=== PATIENT | female | born 1950 | race Caucasian/White ===

== ENCOUNTER 2024-10-18 16:18 | Inpatient (IN) | payer MEDICARE, OTHER ==
[~2024-10-18] VITALS: Ht 162.6 cm; Wt 56.7 kg
[2024-10-18 20:13] LABS: BASOPHILS # (AUTO) 0.1 K/UL (0.0-0.2); BASOPHILS % (AUTO) 0.8 % (0.0-2.0); EOSINOPHILS # (AUTO) 0.2 K/uL (0.0-0.7); HEMATOCRIT 37.3 % (31.2-41.9); HEMOGLOBIN 12.9 g/dL (10.9-14.3); LYMPHOCYTES # (AUTO) 1.5 K/uL (0.8-4.8); LYMPHOCYTES % (AUTO) 18.8 % (20.5-51.5); MEAN CORPUSCULAR HEMOGLOBIN 32.2 uug (24.7-32.8); MEAN CORPUSCULAR HGB CONC 35 g/dL (32.3-35.6); MEAN CORPUSCULAR VOLUME 92.8 fL (75.5-95.3); MONOCYTES # (AUTO) 0.8 K/uL (0.1-1.30); MONOCYTES % (AUTO) 10.5 % (0.0-11.0); NEUTROPHILS # (AUTO) 5.3 K/uL (1.8-8.9); NEUTROPHILS % (AUTO) 67.9 % (38.5-71.5); PLATELET COUNT (AUTO) 268 K/uL (179-408); RED BLOOD CELL COUNT(AUTO) 4.01 MIL/uL (3.63-4.92); RED CELL DISTRIBUTION WIDTH 12.2 % (12.3-17.7); WHITE BLOOD COUNT (AUTO) 7.9 K/uL (3.8-11.8)
[2024-10-18 20:25] LABS: DIFFERENTIAL COMMENT 1
[2024-10-18 20:30] LABS: AMMONIA 18 umol/L (11-32)
[2024-10-18 20:35] LABS: ETHANOL < 3 MG/DL (0-10)
[2024-10-18 20:42] LABS: ALANINE AMINOTRANSFERASE 22 U/L (14-59); ALBUMIN 3.5 g/dL (3.4-5.0); ALKALINE PHOSPHATASE 65 U/L (50-136); ASPARTATE AMINOTRANSFERASE 28 U/L (15-37); BILIRUBIN,DIRECT 0.1 mg/dL (0.0-0.2); BILIRUBIN,TOTAL 0.5 mg/dL (0.2-1.0); CALCIUM 9.5 mg/dL (8.5-10.1); CARBON DIOXIDE 28 mmol/L (21-32); CHLORIDE 102 mmol/L (98-107); CREATININE 0.9 mg/dL (0.6-1.3); GLUCOSE 131 mg/dL (74-106); POTASSIUM 4.2 mmol/L (3.5-5.1); SODIUM SERUM 140 mmol/L (136-145); TOTAL PROTEIN, SERUM 7.7 g/dL (6.4-8.2); UREA NITROGEN, BLOOD 15 mg/dL (7-18)
[2024-10-18 20:47] LABS: ACETAMINOPHEN < 2.0 ug/mL (10-30)
[2024-10-18] MEDS ORDERED: hydrALAZINE HCL 20 MG/1 ML VIAL IV PRN (21:45)
[2024-10-18] MEDS ORDERED: MORPHINE SULFATE 2 MG/1 ML DISP.SYRIN IVP PRN (21:45)
[2024-10-18] MEDS ORDERED: ONDANSETRON 4 MG/2 ML VIAL IV PRN (21:45)
[2024-10-18] MEDS ORDERED: ACETAMINOPHEN 325 MG TABLET PO PRN (21:45)
[2024-10-18] MEDS ORDERED: LORAZEPAM 2 MG/1 ML VIAL ONE (23:11)
[2024-10-18] MEDS: LORAZEPAM 2 MG/1 ML VIAL IV ONE (23:12)
[2024-10-19 03:40] VITALS: BP 139/78; TEMP 99.3; O2SAT 100
[2024-10-19 06:00] VITALS: BP 123/44; TEMP 99.4; O2SAT 95
[2024-10-19] MEDS: HEPARIN SODIUM,PORCINE 5,000 UNITS/ML VIAL SQ SCH (08:19)
[2024-10-19 08:23] LABS: BASOPHILS % (AUTO) 0.7 % (0.0-2.0); EOSINOPHILS # (AUTO) 0.2 K/uL (0.0-0.7); EOSINOPHILS % (AUTO) 3.1 % (0.0-7.0); HEMATOCRIT 32.4 % (31.2-41.9); HEMOGLOBIN 11.6 g/dL (10.9-14.3); LYMPHOCYTES # (AUTO) 1.3 K/uL (0.8-4.8); LYMPHOCYTES % (AUTO) 25.3 % (20.5-51.5); MEAN CORPUSCULAR HEMOGLOBIN 33.1 uug (24.7-32.8); MEAN CORPUSCULAR HGB CONC 36 g/dL (32.3-35.6); MEAN CORPUSCULAR VOLUME 92.8 fL (75.5-95.3); MONOCYTES # (AUTO) 0.6 K/uL (0.1-1.30); MONOCYTES % (AUTO) 11.6 % (0.0-11.0); NEUTROPHILS % (AUTO) 59.3 % (38.5-71.5); PLATELET COUNT (AUTO) 240 K/uL (179-408); RED BLOOD CELL COUNT(AUTO) 3.49 MIL/uL (3.63-4.92)
[2024-10-19 08:33] LABS: ALANINE AMINOTRANSFERASE 16 U/L (14-59); ALBUMIN 2.8 g/dL (3.4-5.0); ALKALINE PHOSPHATASE 56 U/L (50-136); ASPARTATE AMINOTRANSFERASE 26 U/L (15-37); BILIRUBIN,TOTAL 0.5 mg/dL (0.2-1.0); CARBON DIOXIDE 28 mmol/L (21-32); CHLORIDE 107 mmol/L (98-107); CREATININE 0.7 mg/dL (0.6-1.3); GLUCOSE 127 mg/dL (74-106); PHOSPHOROUS 2.6 mg/dL (2.5-4.9); POTASSIUM 3.5 mmol/L (3.5-5.1); SODIUM SERUM 142 mmol/L (136-145); TOTAL PROTEIN, SERUM 6.5 g/dL (6.4-8.2); UREA NITROGEN, BLOOD 10 mg/dL (7-18)
[2024-10-19] MEDS ORDERED: HALOPERIDOL LACTATE 5 MG/1 ML VIAL IM PRN (08:45)
[2024-10-19] MEDS: risperiDONE 0.25 MG TABLET PO SCH (09:00)
[2024-10-19 12:10] VITALS: BP 146/69; TEMP 98.6; O2SAT 97
[2024-10-19 15:27] VITALS: BP 135/69; TEMP 98.6; O2SAT 97
[2024-10-19 17:19] VITALS: BP 111/65; O2SAT 97
[2024-10-19] MEDS: LORAZEPAM 1 MG TABLET PO PRN (17:49)
[2024-10-19 19:00] VITALS: BP 150/71; TEMP 98.6; O2SAT 95
[2024-10-20] VITALS: BP 108/46; TEMP 98.5; O2SAT 95
[2024-10-20] MEDS: hydrOXYzine HCL 25 MG TABLET PO PRN (00:38)
[2024-10-20 07:42] VITALS: BP 114/58; TEMP 98; O2SAT 95
[2024-10-20 11:51] VITALS: BP 116/57; TEMP 97.9; O2SAT 95
[2024-10-20] MEDS: METHIMAZOLE 5 MG TABLET PO SCH (12:12)
[2024-10-20 15:43] VITALS: BP 133/74; TEMP 97.7; O2SAT 95
[2024-10-20 19:25] VITALS: BP 159/92; TEMP 98.6; O2SAT 96
[2024-10-21 05:52] VITALS: BP 128/65; TEMP 98.9; O2SAT 96
[2024-10-21] MEDS ORDERED: METH5TAB34 PO (11:15)
[2024-10-21] MEDS ORDERED: RISP0.2515 PO (11:16)
[2024-10-21 11:32] VITALS: BP 123/73; TEMP 98.5; O2SAT 94
[2024-10-21 14:35] LABS: THYROID STIMULATING HORMONE 0.033 mIU/mL (0.358-3.740)
[2024-10-31] MEDS ORDERED: METOPROLOL TARTRATE 25 MG TABLET PO SCH (21:00)
== END 2024-10-21 14:30 | DRG 281 ==
LOC: ER 16:27 → MEDSURG3 10-19 03:21 → TELE3 10-19 17:43 → MEDSURG3 10-20 18:34
PROVIDERS: ADMIT Internal Medicine; ATTEND Internal Medicine
DX: I21.A1 Myocardial infarction type 2 (principal); G93.40 Encephalopathy, unspecified; E05.90 Thyrotoxicosis, unspecified without thyrotoxic crisis or storm; F29 Unspecified psychosis not due to a substance or known physiological condition; R41.9 Unspecified symptoms and signs involving cognitive functions and awareness
CPT/HCPCS: 36415; 70450; 71045; 72125; 83605; 83921; 84100; 84443; 84484; 85025; 85730; 87040; G0378; G0480; J1644; J2060

== ENCOUNTER 2024-10-21 15:15 | Inpatient (IN) | payer MEDICARE, OTHER ==
[~2024-10-21] VITALS: Ht 165.1 cm; Wt 65.8 kg
[~2024-10-21 15:15] MED LIST: METH5TAB34 PO; RISP0.2515 PO
[2024-10-21] MEDS ORDERED: MAG HYDROX/AL HYDROX/SIMETH 30 ML LIQUID UDC PO PRN (15:30)
[2024-10-21 16:14] VITALS: TEMP 97.8; O2SAT 98
[2024-10-21] MEDS ORDERED: risperiDONE 0.25 MG TABLET PO SCH (17:00)
[2024-10-21 20:00] VITALS: BP 145/81; TEMP 97.8; O2SAT 96
[2024-10-21] MEDS: CLONAZEPAM 0.5 MG TABLET PO PRN (21:15)
[2024-10-21] MEDS: ZOLPIDEM 5 MG TABLET PO PRN (23:37)
[2024-10-22 08:10] VITALS: BP 138/68; TEMP 98; O2SAT 100
[2024-10-22 08:22] LABS: BASOPHILS % (AUTO) 0.8 % (0.0-2.0); EOSINOPHILS # (AUTO) 0.1 K/uL (0.0-0.7); EOSINOPHILS % (AUTO) 2.4 % (0.0-7.0); HEMATOCRIT 34.6 % (31.2-41.9); LYMPHOCYTES # (AUTO) 1.1 K/uL (0.8-4.8); LYMPHOCYTES % (AUTO) 26.2 % (20.5-51.5); MEAN CORPUSCULAR HEMOGLOBIN 32.4 uug (24.7-32.8); MEAN CORPUSCULAR HGB CONC 35 g/dL (32.3-35.6); MEAN CORPUSCULAR VOLUME 93.3 fL (75.5-95.3); MONOCYTES # (AUTO) 0.5 K/uL (0.1-1.30); MONOCYTES % (AUTO) 11.9 % (0.0-11.0); NEUTROPHILS # (AUTO) 2.5 K/uL (1.8-8.9); NEUTROPHILS % (AUTO) 58.7 % (38.5-71.5); PLATELET COUNT (AUTO) 324 K/uL (179-408); RED BLOOD CELL COUNT(AUTO) 3.71 MIL/uL (3.63-4.92); RED CELL DISTRIBUTION WIDTH 12.2 % (12.3-17.7); WHITE BLOOD COUNT (AUTO) 4.3 K/uL (3.8-11.8)
[2024-10-22 08:27] LABS: DIFFERENTIAL COMMENT 1
[2024-10-22 08:32] LABS: CALCIUM 8.3 mg/dL (8.5-10.1); CARBON DIOXIDE 30 mmol/L (21-32); CHLORIDE 107 mmol/L (98-107); CREATININE 0.6 mg/dL (0.6-1.3); GLUCOSE 104 mg/dL (74-106); SODIUM SERUM 146 mmol/L (136-145); UREA NITROGEN, BLOOD 3 mg/dL (7-18)
[2024-10-22] MEDS: METHIMAZOLE 5 MG TABLET PO SCH (09:21)
[2024-10-22] MEDS: POTASSIUM CHLORIDE 10 MEQ TAB.PRT.SR PO SCH (13:51)
[2024-10-22 16:12] VITALS: BP 126/72; TEMP 97.5; O2SAT 100
[2024-10-22 20:00] VITALS: BP 157/90; TEMP 98.1; O2SAT 97
[2024-10-22] MEDS: risperiDONE 0.5 MG TABLET PO SCH (21:07)
[2024-10-22] MEDS: CLONAZEPAM 0.5 MG TABLET PO PRN (21:08)
[2024-10-23 08:08] VITALS: BP 118/88; TEMP 98.2; O2SAT 98
[2024-10-23] MEDS: METHIMAZOLE 5 MG TABLET PO SCH (09:33)
[2024-10-23 16:01] VITALS: BP 151/77; TEMP 98; O2SAT 98
[2024-10-23 20:00] VITALS: BP 150/87; TEMP 97.6; O2SAT 96
[2024-10-24 08:24] LABS: DIFFERENTIAL COMMENT 0; EOSINOPHILS # (AUTO) 0.2 K/uL (0.0-0.7); EOSINOPHILS % (AUTO) 2.8 % (0.0-7.0); HEMATOCRIT 35.1 % (31.2-41.9); HEMOGLOBIN 12.3 g/dL (10.9-14.3); LYMPHOCYTES # (AUTO) 1.3 K/uL (0.8-4.8); LYMPHOCYTES % (AUTO) 23.9 % (20.5-51.5); MEAN CORPUSCULAR HEMOGLOBIN 32.6 uug (24.7-32.8); MEAN CORPUSCULAR HGB CONC 35 g/dL (32.3-35.6); MEAN CORPUSCULAR VOLUME 93.1 fL (75.5-95.3); MONOCYTES # (AUTO) 0.5 K/uL (0.1-1.30); MONOCYTES % (AUTO) 9.9 % (0.0-11.0); NEUTROPHILS # (AUTO) 3.5 K/uL (1.8-8.9); NEUTROPHILS % (AUTO) 63.4 % (38.5-71.5); PLATELET COUNT (AUTO) 322 K/uL (179-408); RED BLOOD CELL COUNT(AUTO) 3.77 MIL/uL (3.63-4.92); RED CELL DISTRIBUTION WIDTH 12.4 % (12.3-17.7); WHITE BLOOD COUNT (AUTO) 5.5 K/uL (3.8-11.8)
[2024-10-24 08:50] LABS: THYROID STIMULATING HORMONE 0.059 mIU/mL (0.358-3.740)
[2024-10-24 09:17] LABS: ALANINE AMINOTRANSFERASE 23 U/L (14-59); ALBUMIN 3.3 g/dL (3.4-5.0); ALKALINE PHOSPHATASE 67 U/L (50-136); ASPARTATE AMINOTRANSFERASE 18 U/L (15-37); BILIRUBIN,TOTAL 0.4 mg/dL (0.2-1.0); CALCIUM 9.1 mg/dL (8.5-10.1); CARBON DIOXIDE 30 mmol/L (21-32); CHLORIDE 107 mmol/L (98-107); CHOLESTEROL 194 mg/dL (<200); CREATININE 0.6 mg/dL (0.6-1.3); GLUCOSE 104 mg/dL (74-106); HDL CHOLESTEROL 57 mg/dL (40-60); PHOSPHOROUS 4.2 mg/dL (2.5-4.9); POTASSIUM 3.6 mmol/L (3.5-5.1); SODIUM SERUM 144 mmol/L (136-145); TOTAL PROTEIN, SERUM 7.3 g/dL (6.4-8.2); TRIGLYCERIDES 117 MG/DL (30-150); UREA NITROGEN, BLOOD 5 mg/dL (7-18)
[2024-10-24 09:23] VITALS: BP 132/69; TEMP 98; O2SAT 98
[2024-10-24] MEDS: risperiDONE 0.5 MG TABLET PO SCH (13:00)
[2024-10-24 15:31] VITALS: BP 164/84; TEMP 98; O2SAT 98
[2024-10-24 20:00] VITALS: BP 162/79; TEMP 97.8; O2SAT 94
[2024-10-24] MEDS: risperiDONE 0.25 MG TABLET PO SCH (20:16)
[2024-10-24 20:30] VITALS: BP 150/89
[2024-10-24] MEDS: ZOLPIDEM 5 MG TABLET PO PRN (22:52)
[2024-10-25 08:16] VITALS: BP 140/76; TEMP 97.6; O2SAT 100
[2024-10-25] MEDS: METHIMAZOLE 5 MG TABLET PO SCH (08:45)
[2024-10-25 16:14] VITALS: BP 138/66; TEMP 98; O2SAT 100
[2024-10-25 20:00] VITALS: BP 148/92; TEMP 97.8; O2SAT 97
[2024-10-25] MEDS: ACETAMINOPHEN 325 MG TABLET PO PRN (22:12)
[2024-10-26 08:23] VITALS: BP 161/87; TEMP 98.2; O2SAT 98
[2024-10-26 16:33] VITALS: BP 146/75; TEMP 98; O2SAT 98
[2024-10-26 20:35] VITALS: BP 151/77; TEMP 97.5; O2SAT 98
[2024-10-27 08:15] VITALS: BP 169/80; TEMP 97.3; O2SAT 97
[2024-10-27 15:31] VITALS: BP 157/75; TEMP 97.3; O2SAT 95
[2024-10-27 20:20] VITALS: BP 171/78; TEMP 97.8; O2SAT 96
[2024-10-28 08:10] VITALS: BP 144/69; TEMP 97.5; O2SAT 98
[2024-10-28 16:02] VITALS: BP 151/94; TEMP 97.5; O2SAT 98
[2024-10-28 20:00] VITALS: BP 135/67; TEMP 98; O2SAT 97
[2024-10-28] MEDS: risperiDONE 1 MG TABLET PO SCH (20:34)
[2024-10-29 08:02] VITALS: BP 152/75; TEMP 98; O2SAT 98
[2024-10-29 15:16] VITALS: BP 172/84; TEMP 98; O2SAT 98
[2024-10-29 20:00] VITALS: BP 125/78; TEMP 97.9; O2SAT 97
[2024-10-30 08:02] VITALS: BP 144/85; TEMP 98.2; O2SAT 96
[2024-10-30 08:03] VITALS: BP 114/63; TEMP 98; O2SAT 96
[2024-10-30 15:22] VITALS: BP 145/72; TEMP 97.8; O2SAT 98
[2024-10-30 20:00] VITALS: BP 147/83; TEMP 98; O2SAT 97
[2024-10-31 07:59] VITALS: BP 97/52; TEMP 97.8; O2SAT 97
[2024-10-31 16:00] VITALS: BP 152/85; TEMP 97.2; O2SAT 97
[2024-10-31] MEDS: MAGNESIUM HYDROXIDE 30 ML LIQUID UDC PO PRN (18:27)
[2024-10-31 21:12] VITALS: BP 103/70; TEMP 98; O2SAT 100
[2024-11-01 08:06] VITALS: BP 131/68; TEMP 97.6; O2SAT 100
[2024-11-01 16:04] VITALS: BP 146/82; TEMP 98.3; O2SAT 100
[2024-11-01 19:48] VITALS: BP 118/71; TEMP 98.1; O2SAT 100
[2024-11-02 08:06] VITALS: BP 146/68; TEMP 98; O2SAT 100
== END 2024-11-02 11:20 | DRG 885 ==
LOC: GPS 15:15
PROVIDERS: ADMIT Psychiatry & Neurology Psychiatry; ATTEND Internal Medicine
DX: F29 Unspecified psychosis not due to a substance or known physiological condition (principal); G93.40 Encephalopathy, unspecified; E05.90 Thyrotoxicosis, unspecified without thyrotoxic crisis or storm; M47.812 Spondylosis without myelopathy or radiculopathy, cervical region; E03.9 Hypothyroidism, unspecified; F39 Unspecified mood [affective] disorder; F41.9 Anxiety disorder, unspecified; I11.9 Hypertensive heart disease without heart failure; R41.0 Disorientation, unspecified; R41.89 Other symptoms and signs involving cognitive functions and awareness
CPT/HCPCS: 36415; 71045; 83735; 84100; 84443; 85025

== ENCOUNTER 2025-01-23 19:20 | Emergency (ER) | payer MEDICARE, OTHER ==
[~2025-01-23] VITALS: Ht 162.6 cm; Wt 58.1 kg
[~2025-01-23 19:20] MED LIST changes: -RISP0.2515 PO
[2025-01-23] MEDS ORDERED: HYDR-501 PO (20:48)
[2025-01-23 21:19] VITALS: BP 143/100; TEMP 98; O2SAT 97
== END 2025-01-23 21:20 | disposition home or self-care (01) ==
LOC: ER 19:20
DX: F41.9 Anxiety disorder, unspecified (principal); R03.0 Elevated blood-pressure reading, without diagnosis of hypertension; E03.9 Hypothyroidism, unspecified; Z86.79 Personal history of other diseases of the circulatory system; Z87.19 Personal history of other diseases of the digestive system; Z87.448 Personal history of other diseases of urinary system
CPT/HCPCS: A4606; A4663